=== PATIENT | male | born 1970 | race Caucasian/White ===

== ENCOUNTER 2017-02-11 10:18 | Emergency (ER) | payer MEDICAID, OTHER ==
[~2017-02-11] VITALS: Ht 175.3 cm; Wt 88.0 kg
[2017-02-11 10:32] VITALS: Ht 175.3 cm; Wt 88.0 kg
[2017-02-11] MEDS ORDERED: KETOROLAC 60 MG INJ IM STA (12:06)
[2017-02-11] MEDS ORDERED: HYDROCODONE/APAP (10/325) TAB PO ONE (12:30)
--- NOTE | 2017-02-11 12:45 | RADRPT ---
PROCEDURE: XR Shoulder. CLINICAL INDICATION: Right shoulder pain TECHNIQUE: 3 views of the right shoulder are available for review. COMPARISON: None available FINDINGS: There is normal mineralization and alignment of the bones of the right shoulder. No acute fracture or dislocation is identified. The glenohumeral joint is within normal limits. The acromioclavicular joint is intact. The visualized portions of the right chest wall are grossly unremarkable. The sof t tissues are within normal limits. IMPRESSION: 1. Unremarkable right shoulder series. RPTAT: KK .Roge Brink MD, Date Time Electronically viewed and signed by .Roge Brink MD, on 02/11/2017 12:45 .B/
[2017-02-11] MEDS ORDERED: HYDR-906 PO (12:49)
[2017-02-11] MEDS ORDERED: CYCL-319 PO (12:49)
[2017-02-11] MEDS ORDERED: IBUP-1542 PO (12:49)
--- NOTE | 2017-02-11 12:52 | ERD ---
ER Documentation Chief Complaint Date/Time DATE: 02/11/17 TIME: 12:49 Chief Complaint RT ARM PAIN X 1 DAY , NO TRAUMA HPI Patient is a 46-year-old male who presents with right shoulder pain that began yesterday. Denies any trauma. Denies any numbness or tingling. Denies fever. He does have limited range of motion. Pain is 8 out of 10. He has not taken any medications for this. ROS All systems reviewed and are negative except as per history of present illness. Medications Home Meds Active Scripts Cyclobenzaprine Hcl* (Cyclobenzaprine Hcl*) 10 Mg Tablet, 10 MG PO BID, #20 TAB Prov:CESAR MCCRAY PA-C 02/11/17 Hydrocodone/Acetaminophen ([place] 5-325 Tablet) 1 Each Tablet, 1 TAB PO Q6H Y for PAIN, #20 TAB Prov:CESAR MCCRAY PA-C 02/11/17 Ibuprofen* (Motrin*) 600 Mg Tab, 600 MG PO Q6H Y for PAIN AND OR ELEVATED TEMP, #30 TAB Prov:CESAR MCCRAY PA-C 02/11/17 Allergies Allergies: Coded Allergies: No Known Allergy (Unverified , 02/11/17) PMhx/Soc History of Surgery: No Anesthesia Reaction: No Hx Neurological Disorder: No Hx Respiratory Disorders: No Hx Cardiac Disorders: No Hx Psychiatric Problems: No Hx Miscellaneous Medical Probl: No Hx Alcohol Use: No Hx Substance Use: No Hx Tobacco Use: No FmHx Family History: No diabetes Physical Exam Vitals Vital Signs Date Time Temp Pulse Resp B/P Pulse Ox O2 Delivery O2 Flow Rate FiO2 02/11/17 10:32 98.2 88 18 143/90 99 Physical Exam General: well developed, well nourished, alert, nontoxic, no distress Head: normocephalic, atraumatic Neck: Supple, nontender, no lymphadenopathy, no midline tenderness Respiratory: Clear to auscaultation bilaterally, speaks in full sentences, no use of accesory muscles or labored breathing, no rales, ronchi, or wheezing Cardiovascular: RRR, No murmurs Back: no midline tenderness, no step offs or bony abnormalities, sensation to light touch in tact Extremities: Right shoulder: Limited range of motion secondary to pain, no bony abnormalities, sensation to light touch intact, brachial pulse and radial pulse 2+, able to make a fist, no tenderness redness or swelling over the clavicle, no erythema Results 24 hrs Current Medications Medications (Trade) Dose Ordered Sig/Bola Route PRN Reason Start Time Stop Time Status Last Admin Dose Admin Ketorolac Tromethamine (Toradol) 60 mg ONCE STAT IM 02/11/17 12:06 02/11/17 12:07 DC 02/11/17 12:22 Acetaminophen/ Hydrocodone Bitart ([place] (10/325)) 1 tab ONCE ONCE PO 02/11/17 12:30 02/11/17 12:31 DC 02/11/17 12:21 Procedures/MDM Patient has right shoulder pain. There is no trauma. He is neurovascular intact. No evidence of septic joint or other infections. He was given Toradol and [place] with some improvement of his symptoms. X-ray was unremarkable. Patient is discharged with anti-inflammatories, pain medication, and muscle relaxer. Recommended this patient follow up with her primary care doctor within 48 hours or return to the emergency room for any worsening of symptoms. However this time I do believe there is suitable for outpatient management. I answered all their questions and they agreed with the plan and were discharged home. Departure Diagnosis: Primary Impression: Myalgia Condition: Stable Patient Instructions: Myalgias Referrals: [facility] Usted se aguilera hecho un examen mdico de control que le indica que no est en janes condicin que requiera tratamiento urgente en el Departamento de Emergencia. Un estudio ms profundo y el tratamiento de morataya condicin pueden esperar sin ningn riesgo hasta que usted sea atendida/o en el consultorio de morataya mdico o janes cl gabriel. Es responsabilidad suya arreglar janes dionte para el seguimiento del lottie. MANEJO DE CONDICIONES NO URGENTES EN EL FUTURO 1) Si usted tiene un mdico de atencin primaria: Usted debera llamar a morataya mdico de atencin primaria antes de venir al departamento de emergencia. Despus de las horas de consultorio, morataya doctor o morataya asociado/a est disponible por telfono. El mdico o enfermero de amos en el servicio telefnico puede asesorarle por chauncey medio para atender el problema, o lottie contrario se puede programar janes dionte. 2) Si usted no tiene un mdico de atencin primaria: Llame al mdico o clnica de referencia que aparece abajo braeden las horas de consultorio para hacer janes dionte para que le vean. CLINICAS: [facility] [phone] [facility] [phone] [facility] [phone] [address] [place] [phone] [place] [address] [phone] [facility] [phone] [address] Additional Instructions: Llame al doctor MAANA y william janes DIONTE PARA DENTRO DE 1-2 NAVARRETE.Dgale a la secretaria que nosotros le instruimos hacer esta dionte.Avise o llame si morataya condicin se empeora antes de la dionte. Regresa aqui si peor o no mejor. CESAR MCCRAY PA-C February 11, 2017 12:52
[2017-02-11 13:00] VITALS: BP 145/67; PULSE 78; RESP 18; TEMP 98.1
== END 2017-02-11 13:08 | disposition home or self-care (01) ==
LOC: FTE 10:18
DX: M79.1 Myalgia (principal)
CPT/HCPCS: 73030; J1885; Z7610; 96372

== ENCOUNTER 2017-02-24 17:59 | Emergency (ER) | payer MEDICAID ==
[~2017-02-24] VITALS: Ht 165.1 cm; Wt 78.0 kg
[~2017-02-24 17:59] MED LIST: CYCL-319 PO; HYDR-906 PO; IBUP-1542 PO
[2017-02-24 18:00] VITALS: Ht 165.1 cm; Wt 78.0 kg
[2017-02-24] MEDS ORDERED: KETOROLAC 60 MG INJ IM STA (19:37)
[2017-02-24] MEDS ORDERED: NAPR-260 PO (19:59)
--- NOTE | 2017-02-24 20:08 | ERD ---
ER Documentation Chief Complaint Date/Time DATE: 02/24/17 TIME: 20:02 Chief Complaint left arm/shoulder pain, here before c/ right arm pain. HPI 46-year-old male complaining of left shoulder pain 2 days. Patient reports waking up with a pain 2 days ago, the pain has become worse progressively. Patient usually sleeps on his sides, but switch sides during sleep. 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 Patient states that he was seen here about 2 weeks ago for similar pain on his right shoulder. He received Toradol injection at the time, and the pain had relieved after the Toradol. He was given prescription Medford for home, but Medford had not helped with his pain in his left shoulder. Denies fever or chills. Denies falls or other trauma. ROS All systems reviewed and are negative except as per history of present illness. Medications Home Meds Active Scripts Naproxen* (Naprosyn*) 500 Mg Tablet, 500 MG PO BID Y for PAIN AND/OR INFLAMMATION, #30 TAB Prov:GINA BUENO TIGHT BARREL INSPECTOR 02/24/17 Cyclobenzaprine Hcl* (Cyclobenzaprine Hcl*) 10 Mg Tablet, 10 MG PO BID, #20 TAB Prov:CESAR MCCRAY PA-C 02/11/17 Hydrocodone/Acetaminophen ([place] 5-325 Tablet) 1 Each Tablet, 1 TAB PO Q6H Y for PAIN, #20 TAB Prov:CESAR MCCRAY PA-C 02/11/17 Ibuprofen* (Motrin*) 600 Mg Tab, 600 MG PO Q6H Y for PAIN AND OR ELEVATED TEMP, #30 TAB Prov:CESAR MCCRAY PA-C 02/11/17 Allergies Allergies: Coded Allergies: No Known Allergy (Unverified , 02/11/17) PMhx/Soc Medical and Surgical Hx: pt denies Medical Hx History of Surgery: No Anesthesia Reaction: No Hx Neurological Disorder: No Hx Respiratory Disorders: No Hx Cardiac Disorders: No Hx Psychiatric Problems: No Hx Miscellaneous Medical Probl: No Hx Alcohol Use: No Hx Substance Use: No Hx Tobacco Use: No Physical Exam Vitals Vital Signs Date Time Temp Pulse Resp B/P Pulse Ox O2 Delivery O2 Flow Rate FiO2 02/24/17 18:00 97.9 88 17 145/90 99 Physical Exam General: Well-developed, well-nourished, conscious and coherent, in no distress Skin: Warm and dry without rash, good texture and turgor Head: Normocephalic without evidence of trauma Eyes: Sclera and conjunctivae normal; pupils equal, round, and reactive to light; extraocular movements are intact Neck: Supple without meningismus or adenopathy. Carotids are equal. Trachea midline. No bruits or JVD Chest: Normal AP diameter. Good expansion without retractions. Nontender. Lungs are clear to auscultate bilaterally with good tidal volume Heart: Regular rate and rhythm. No murmur, rub, or gallops heard Abdomen: Soft and nontender without masses, guarding, or rebound. Bowel sounds are active. No hepatosplenomegaly Extremities: Bilateral shoulders normal to inspection. Tenderness over the left bursa. Decreased range of motion of the left shoulder due to pain. Good strength bilaterally. No clubbing, cyanosis, or edema. Peripheral pulses are intact. Sensation intact Neuro: Alert and oriented 4, GCS 15. Cranial nerves grossly intact. Motor and sensory exams nonfocal. Moves all extremities. Speech clear. Gait normal Results 24 hrs Current Medications Medications (Trade) Dose Ordered Sig/Bola Route PRN Reason Start Time Stop Time Status Last Admin Dose Admin Ketorolac Tromethamine (Toradol) 60 mg ONCE STAT IM 02/24/17 19:37 02/24/17 19:39 DC 02/24/17 19:58 Procedures/MDM Well-appearing 46-year-old male present ED with left shoulder pain 2 days. Exam findings are consistent with left shoulder bursitis. Patient denies any trauma, I do not feel radiographic imaging is necessary. Patient is given Toradol in the ED. Patient reports relief of pain after Toradol. Advised patient to apply ice and take NSAIDs at home to help reduce the pain. Patient also advised to follow-up with PCP for physical therapy referral. Patient appears well, stable for discharge and outpatient management. Medical decision making shared with patient and family. Education provided to patient and family. Patient and family expressed understanding of the plan. Medications on discharge: Naproxen. Follow-up: Primary care provider in 2-3 days or return to ED if worse. Departure Diagnosis: Primary Impression: Bursitis of shoulder Laterality: left Qualified Code: M75.52 - Bursitis of left shoulder Condition: Good Patient Instructions: Bursitis Referrals: [facility] YOU HAVE RECEIVED A MEDICAL SCREENING EXAM AND THE RESULTS INDICATE THAT YOU DO NOT HAVE A CONDITION THAT REQUIRES URGENT TREATMENT IN THE EMERGENCY DEPARTMENT. FURTHER EVALUATION AND TREATMENT OF YOUR CONDITION CAN WAIT UNTIL YOU ARE SEEN IN YOUR DOCTORS OFFICE WITHIN THE NEXT 1-2 DAYS. IT IS YOUR RESPONSIBILITY TO MAKE AN APPOINTMENT FOR FOLOW-UP CARE. IF YOU HAVE A PRIMARY DOCTOR --you should call your primary doctor and schedule an appointment IF YOU DO NOT HAVE A PRIMARY DOCTOR YOU CAN CALL OUR PHYSICIAN REFERRAL HOTLINE AT IF YOU CAN NOT AFFORD TO SEE A PHYSICIAN YOU CAN CHOSE FROM THE FOLLOWING [facility] [address] [facility]. [facility] [address] [facility]. [facility] [address] [facility] [facility] [address] [facility]. [facility] [address] [facility]. [facility] [address] Additional Instructions: Call your primary care doctor TOMORROW for an appointment during the next 2-3 days.See the doctor sooner or return here if your condition worsens before your appointment time. Ask your doctor for a referral to physical therapy. GINA BUENO NP February 24, 2017 20:08
== END 2017-02-24 20:56 | disposition home or self-care (01) ==
LOC: FTE 17:59
DX: M75.52 Bursitis of left shoulder (principal)
CPT/HCPCS: 96372; J1885; Z7502

== ENCOUNTER 2017-03-27 23:43 | Emergency (ER) | payer MEDICAID ==
[~2017-03-27] VITALS: Wt 85.0 kg
[~2017-03-27 23:43] MED LIST changes: +NAPR-260 PO
--- NOTE | 2017-03-28 00:51 | ERD ---
ER Documentation Chief Complaint Date/Time DATE: 03/28/17 TIME: 00:44 Chief Complaint Swollen Left hand, possible Bug bite HPI 46-year-old male presents to emergency department for complaints of left hand pain, patient is complaining of redness and swelling on the dorsal aspect of the left hand, possibly got bit by an insect. Patient describes the pain as throbbing pain, 6/10 scale, worse upon touching the area. Patient does not have any numbness or tingling. Patient did not take any medications for pain. ROS All systems reviewed and are negative except as per history of present illness. Medications Home Meds Active Scripts Naproxen* (Naprosyn*) 500 Mg Tablet, 500 MG PO BID Y for PAIN AND/OR INFLAMMATION, #30 TAB Prov:GINA BUENO PAPER SEALER 02/24/17 Cyclobenzaprine Hcl* (Cyclobenzaprine Hcl*) 10 Mg Tablet, 10 MG PO BID, #20 TAB Prov:CESAR MCCRAY PA-C 02/11/17 Hydrocodone/Acetaminophen ([place] 5-325 Tablet) 1 Each Tablet, 1 TAB PO Q6H Y for PAIN, #20 TAB Prov:CESAR MCCRAY PA-C 02/11/17 Ibuprofen* (Motrin*) 600 Mg Tab, 600 MG PO Q6H Y for PAIN AND OR ELEVATED TEMP, #30 TAB Prov:CESAR MCCRAY PA-C 02/11/17 Allergies Allergies: Coded Allergies: No Known Allergy (Unverified , 02/11/17) PMhx/Soc Medical and Surgical Hx: pt denies Medical Hx, pt denies Surgical Hx History of Surgery: No Anesthesia Reaction: No Hx Neurological Disorder: No Hx Respiratory Disorders: No Hx Cardiac Disorders: No Hx Psychiatric Problems: No Hx Miscellaneous Medical Probl: No Hx Alcohol Use: No Hx Substance Use: No Hx Tobacco Use: No Smoking Status: Never smoker FmHx Family History: No coronary disease, No diabetes, No other Physical Exam Vitals Vital Signs Date Time Temp Pulse Resp B/P Pulse Ox O2 Delivery O2 Flow Rate FiO2 03/28/17 00:12 98.9 91 20 138/87 97 Physical Exam GENERAL: The patient is well developed and appropriate for usual state of health, in no apparent distress. CHEST: Clear to auscultation bilaterally. There are no rales, wheezes or rhonchi. HEART: Regular rate and rhythm. No murmurs, clicks, rubs or gallops. No S3 or S4. ABDOMEN: Soft, nontender and nondistended. Good bowel sounds. No rebound or guarding. No gross peritonitis. No gross organomegaly or masses. No Banerjee sign or McBurney point tenderness. BACK: No midline or flank tenderness. EXTREMITIES: Equal pulses bilaterally. There is no peripheral clubbing, cyanosis or edema. No focal swelling or erythema. Full range of motion. Grossly neurovascularly intact. NEURO: Alert and oriented. Cranial nerves 2-12 intact. Motor strength in all 4 extremities with 5/5 strength. Sensation grossly intact. Normal speech and gait. SKIN: Redness on palpation on the dorsal aspect of the left hand. There is no apparent ecchymosis or petechia. The skin is warm and dry. HEMATOLOGIC AND LYMPHATIC: There is no evidence of excessive bruising or lymphedema. No gross cervical, axillary, or inguinal lymphadenopathy. Results 24 hrs Current Medications Medications (Trade) Dose Ordered Sig/Bola Route PRN Reason Start Time Stop Time Status Last Admin Dose Admin Dexamethasone (Decadron) 10 mg ONCE ONCE IM 03/28/17 01:00 03/28/17 01:01 Diphenhydramine HCl (Benadryl) 50 mg ONCE ONCE IM 03/28/17 01:00 03/28/17 01:01 Acetaminophen/ Hydrocodone Bitart ([place] (10/325)) 1 tab ONCE ONCE PO 03/28/17 01:00 03/28/17 01:01 Benadryl Decadron and [place] was given here in emergency department, verbalized understanding afterwards. Procedures/MDM Medical Decision Making: Patient's pain was likely is consistent with an infected insect bite. Most likely had a reaction to the insect bite. No symptoms of any neurovascular compromise. No symptoms of any compartment syndrome at this time. No symptoms of sepsis at this time. Patient was given prescription for Keflex, Benadryl, prednisone, ibuprofen, [place] to follow-up with primary care doctor in 2 days for reevaluation of symptoms. Patient is advised to return to emergency department for any worsening symptoms. Departure Diagnosis: Primary Impression: Infected insect bite Encounter type: initial encounter Qualified Code: W57.XXXA - Infected insect bite, initial encounter Condition: Stable Patient Instructions: Insect Sting/Bite, Infected ELHAM BETH NP Mar 28, 2017 00:50
[2017-03-28] MEDS ORDERED: HYDR-906 PO (00:52)
[2017-03-28] MEDS ORDERED: BEN50 PO (00:52)
[2017-03-28] MEDS ORDERED: CEPH-443 PO (00:52)
[2017-03-28] MEDS ORDERED: PRED50TA PO (00:52)
[2017-03-28] MEDS ORDERED: SULF1TAB31 PO (00:52)
[2017-03-28] MEDS ORDERED: IBUP-1542 PO (00:52)
[2017-03-28] MEDS ORDERED: HYDROCODONE/APAP (10/325) TAB PO ONE (01:00)
[2017-03-28] MEDS ORDERED: DEXAMETHASONE 10 MG/ML 1 ML INJ IM ONE (01:00)
[2017-03-28] MEDS ORDERED: DIPHENHYDRAMINE 50 MG INJ IM ONE (01:00)
== END 2017-03-28 01:31 | disposition home or self-care (01) ==
LOC: FTE 23:43
DX: S60.562A Insect bite (nonvenomous) of left hand, initial encounter (principal); W57.XXXA Bitten or stung by nonvenomous insect and other nonvenomous arthropods, initial encounter; Y92.9 Unspecified place or not applicable
CPT/HCPCS: 96372; J1100; J1200; Z7502; Z7610

== ENCOUNTER 2017-10-03 22:42 | Emergency (ER) | END 2017-10-04 05:12 | disposition home or self-care (01) ==

== ENCOUNTER 2017-10-23 16:38 | Emergency (ER) | END 2017-10-23 19:39 | disposition home or self-care (01) ==

== ENCOUNTER 2017-12-13 16:10 | Emergency (ER) | END 2017-12-13 17:28 | disposition home or self-care (01) ==